=== PATIENT | female | born 1985 ===

== ENCOUNTER 2017-06-18 10:27 | Emergency (ER) | payer MEDICAID ==
[2017-06-18 11:26] VITALS: BMI 26.9
[2017-06-18 11:53] LABS: SQUAMOUS EPITHIAL 15 /hpf (0-5); URINE BACTERIA RARE (<OCC); URINE BILIRUBIN NEGATIVE (NEGATIVE); URINE BLOOD NEGATIVE (NEGATIVE); URINE CLARITY Hazy (Clear); URINE COLOR Yellow (YELLOW); URINE GLUCOSE (UA) NORMAL (Normal); URINE LEUKOCYTE ESTERASE 3+ Leu/uL (Negative); URINE PROTEIN NEGATIVE (NEGATIVE); URINE UROBILINOGEN NORMAL mg/dL (0.2-1.0)
--- NOTE | 2017-06-18 11:56 | OBDCSUM ---
Datetime: 06/18/2017 11:54 Discharged to, Provider: Other Follow up at, Provider: Clinic Discharge Time: 06/18/2017 11:55 Follow up in weeks, Provider: 3 -5 days Discharge Comment, Provider: DC to ER for social servic and pysch evaluation
--- NOTE | 2017-06-18 11:56 | OBHP ---
Datetime: 06/18/2017 11:49 IP Adm Impression: , intrauterine Admit Comment, IP Provider: 31 y/o @ 23.6 wks GA c/o point tenderness right lower quadrant o n and off, non radiating, 2/10 severity. pt dneis any fever, chills, nasue, vomiting, dysuir, urgency has normal frequency iunchanged since , rafa any constiptoin, vaginal bleeding. Pt preorts she feels anxious and belives her partner is cheating on her. Pt told RN that she wanted to take a p ill and go to sleep. upon questioning with md, pt denies any sadness, depression, SI, HI, feeligsn of guillt. Pt dnie any cp, sob. VSS PE See above EFM: 150bpm TOCO: no ct A/P 31 y/o @ 23.6 wks GA with non specific right lower tenderness -f/u UA -Pain manamgnet: tryonol , hydration -obstetrically cleared -Send to Er for crisis evaluation, social support Pelvic Type - PN: Adequate Extremities - PN: Normal Abdomen - PN: Normal Back - PN: Normal Breast - PN: Not Done Lungs - PN: Normal Heart - PN: Normal Thyroid - PN: Not Done Neurologic - PN: Normal HEENT - PN: Normal General - PN: Normal FHR - Baseline A Provider: 150 Membranes, Provider: Intact Contraction Comments Provider: none Gestation - Est Wks by US: 23.6 EGA AdmitDate IP: 23.6 Vital Signs Provider: Reviewed; Within Normal Limits IP Chief Complaint: Other Dilatation, Provider: 0 Effacement, Provider: 0 Genitourinary Exam: Normal DTRs - PN: Normal
[2017-06-18] MEDS ORDERED: Dextrose 5%/Lactated Ringer's 1,000 ML IV SCH (12:15)
[2017-06-18] MEDS ORDERED: ceFAZolin 2 GM in Sodium Chloride 0.9% 100 ML IVPB ONE (12:30)
[2017-06-18 13:41] VITALS: O2SAT 100
[2017-06-18 14:42] LABS: BASO # 0.1 K/uL (0.0-0.2); EOS % 0.5 % (0.0-4.0); HEMOGLOBIN 10.8 g/dL (11.0-16.0); LYMPH # 1.5 K/uL (1.0-4.3); LYMPH % 19.5 % (20.0-40.0); MEAN CELL VOLUME 85.7 fL (81.0-99.0); MEAN CORPUSCULAR HEMOGLOBIN 30.5 pg (27.0-31.0); MEAN CORPUSCULAR HGB CONC 35.6 g/dL (33.0-37.0); MEAN PLATELET VOLUME 7.8 fL (7.2-11.7); MONO # 0.4 K/uL (0.0-0.8); MONO % 5.7 % (0.0-10.0); NEUT # 5.5 K/uL (1.8-7.0); NEUT % 73.3 % (50.0-75.0); RBC 3.55 Mil/uL (3.80-5.20); RED CELL DISTRIBUTION WIDTH 14.6 % (11.5-14.5); WHITE BLOOD COUNT 7.6 K/uL (4.8-10.8)
[2017-06-18 14:54] LABS: ALB/GLOB RATIO 0.9 (1.0-2.1); ALBUMIN 3.2 g/dL (3.5-5.0); ALT/SGPT 11 U/L (9-52); AST/SGOT 18 U/L (14-36); BLOOD UREA NITROGEN 3 mg/dL (7-17); CALCIUM 8.4 mg/dl (8.6-10.4); GFR AFRICAN-AMERICAN > 60; GFR NON-AFRICAN AMERICAN > 60
[2017-06-18 14:55] LABS: ACETAMINOPHEN < 10.0 ug/mL (10.0-30.0); SALICYLATE < 1.0 mg/dL 1
[2017-06-18] MEDS ORDERED: Potassium Chloride 20 mEq ER Tab PO STA (14:56)
--- NOTE | 2017-06-18 15:03 | C.PDOC ---
History Of Present Illness Pt was cleared by L&D and treated for UTI. Pt was sent to this ED for psychiatric evaluation. 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 denies: Suicidal Thoughts, Suicidal Plan Additional History Per: Prior Records Past Medical History Reviewed: Historical Data, Nursing Documentation, Vital Signs Vital Signs: Last Vital Signs Temp 98.2 F 06/18/17 13:30 Pulse 92 H 06/18/17 13:30 Resp 18 06/18/17 13:30 BP 124/78 06/18/17 13:30 Pulse Ox 100 06/18/17 15:04 - Medical History PMH: No Chronic Diseases Other PMH: Pt is Family History: States: Unknown Family Hx - Social History Hx Tobacco Use: No Hx Alcohol Use: No Hx Substance Use: No - Immunization History Hx Tetanus Toxoid Vaccination: No Hx Influenza Vaccination: No Hx Pneumococcal Vaccination: No Review Of Systems Except As Marked, All Systems Reviewed And Found Negative. Constitutional: Negative for: Fever Cardiovascular: Negative for: Chest Pain Respiratory: Negative for: Shortness of Breath Gastrointestinal: Negative for: Vomiting, Diarrhea Genitourinary: Positive for: Pelvic Pain Musculoskeletal: Negative for: Neck Pain Skin: Negative for: Rash Neurological: Negative for: Weakness, Numbness Psych: Negative for: Psychosis Physical Exam - Physical Exam Appears: Non-toxic, No Acute Distress Skin: Normal Color, Warm, Dry, No Rash Head: Atraumatic, Normacephalic Eye(s): bilateral: Normal Inspection, PERRL, EOMI Neck: Normal ROM, Supple Cardiovascular: Rhythm Regular Respiratory: Normal Breath Sounds, No Accessory Muscle Use Gastrointestinal/Abdominal: Soft, Other (Gravid) Back: No CVA Tenderness Extremity: Normal ROM Neurological/Psych: Oriented x3, Normal Motor, Normal Sensation ED Course And Treatment - Laboratory Results Result Diagrams: 06/18/17 14:38 06/18/17 14:38 Interpretation Of Abnormal: Mild hypokalemia O2 Sat by Pulse Oximetry: 100 Pulse Ox Interpretation: Normal Progress Note: 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 Alonso. They psychiatrically cleared pt for discharge home with outpt referral. Reassessment Condition: Improved - Physician Consult Information Physician Contacted: Lizett Duncan Outcome Of Conversation: She wants pt to receive a prescriptin for Macrobid for 7 days. Disposition Counseled Patient/Family Regarding: Studies Performed, Diagnosis, Need For Followup, Rx Given - Disposition Disposition: HOME/ ROUTINE Disposition Time: 15:12 Condition: STABLE Additional Instructions: Drink plenty of fluids. 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 Return to the ER if you develop suicidal or homicidal thoughts, fever, vomiting, bleeding, worsening of symptoms or if you have nay other concerns. Prescriptions: Nitrofurantoin Macrocrystals [Macrobid] 1 cap PO BID #14 cap Instructions: Urinary Tract Infection, Adult (DC), Depression, Adult (DC) Forms: [facility] (Maldivian) Print Language: FAROESE - Clinical Impression Clinical Impression: UTI in , Depression during
[2017-06-18] MEDS ORDERED: Potassium Chloride 20 mEq ER Tab PO ONE ×2 (15:12→15:16)
[2017-06-18 15:18] VITALS: BP 119/78; PULSE 90; RESP 20; TEMP 97.8
== END 2017-06-18 15:25 | disposition home or self-care (01) ==
LOC: C.ER 10:27 → C.EROB 10:27 → C.ER 15:25
DX: O23.42 Unspecified infection of urinary tract in pregnancy, second trimester (principal); F32.9 Major depressive disorder, single episode, unspecified; Z3A.23 23 weeks gestation of pregnancy
CPT/HCPCS: 80053; 80320; 80329; 81001; 85025; 99283; J0690; J7120